=== PATIENT | male | born 1975 | race Asian ===

== ENCOUNTER → 2024-06-13 10:36 | Outpatient (REF) | payer OTHER, SELFPAY | LOC: RAD 10:36 | PROVIDERS: ATTENDING PHYSICIAN Internal Medicine | DX: R09.89 Other specified symptoms and signs involving the circulatory and respiratory systems (principal); J31.0 Chronic rhinitis; Z00.00 Encounter for general adult medical examination without abnormal findings | CPT/HCPCS: 71046 ==